=== PATIENT | male | born 1960 | race Caucasian/White ===

== ENCOUNTER 2019-05-30 09:17 | Emergency (ER) | payer BC, OTHER ==
[~2019-05-30] VITALS: Ht 160 cm; Wt 95.0 kg
[~2019-05-30 09:17] MED LIST: IBUPROFEN; TRAM50TA3 PO
[2019-05-30] MEDS ORDERED: KETOROLAC 60MG/2ML VIAL IM STA (09:53)
[2019-05-30 10:38] VITALS: BP 132/80
== END 2019-05-30 10:39 | disposition home or self-care (01) ==
LOC: ER 09:17
DX: M25.561 Pain in right knee (principal)
CPT/HCPCS: 96372; 99283; J1885

== ENCOUNTER 2020-04-28 10:48 | Emergency (ER) | payer BC ==
[~2020-04-28] VITALS: Ht 165.1 cm; Wt 98.0 kg
[2020-04-28 11:32] LABS: BASOPHILS % 0.8 % (0.0-2.0); EOSINOPHILS % 0.3 % (0.0-5.0); HEMATOCRIT. 47.3 % (42.0-52.0); MEAN CORPUSCULAR HEMOGLOBIN 29.9 pg (28.0-32.0); MEAN CORPUSCULAR VOLUME 88.2 fL (80.0-94.0); MONOCYTES % 8.3 % (2.0-8.0); NEUTROPHILS % 48.6 % (40.0-76.0); PLATELET 156 x1000/uL (130-400); RED BLOOD CELL COUNT 5.36 mill/uL (4.7-6.1); RED CELL DISTRIBUTION WIDTH 16.9 % (11.6-14.6)
[2020-04-28 11:34] LABS: CLARITY URINE CLEAR (CLEAR); COLOR URINE YELLOW (YELLOW); KETONES URINE NEGATIVE (NEGATIVE); LEUKOCYTE ESTERASE URINE NEGATIVE (NEGATIVE); NITRITE URINE NEGATIVE (NEGATIVE); OCCULT BLOOD URINE NEGATIVE (NEGATIVE); PH URINE 5.5 (4.5-8.0); PROTEIN URINE NEGATIVE (NEGATIVE); SPECIFIC GRAVITY URINE 1.021 (1.005-1.030); UROBILINOGEN URINE 0.2 E.U./dL (0.2-1.0)
[2020-04-28 11:40] LABS: CHLORIDE 106 mEq/L (98-107)
[2020-04-28 11:54] LABS: *AMPHETAMINES SCREEN URINE NEGATIVE (NEGATIVE); *BARBITURATES SCREEN URINE NEGATIVE (NEGATIVE); *BENZODIAZEPINES SCREEN URINE NEGATIVE (NEGATIVE); *COCAINE SCREEN URINE NEGATIVE (NEGATIVE); METHADONE URINE SCREEN NEGATIVE (NEGATIVE)
[2020-04-28 11:55] LABS: CANNABINOID URINE SCREEN NEGATIVE (NEGATIVE); OPIATES URINE SCREEN NEGATIVE (NEGATIVE); PHENCYCLIDINE URINE SCREEN NEGATIVE (NEGATIVE)
[2020-04-28 14:13] VITALS: BP 112/69
[2020-04-28] MEDS ORDERED: MORPHINE SULFATE 2 MG/ML CPJ (NOT FOR IM USE) IV ONE (14:15)
== END 2020-04-28 14:59 | disposition home or self-care (01) ==
LOC: ER 10:48
DX: K40.20 Bilateral inguinal hernia, without obstruction or gangrene, not specified as recurrent (principal); K44.9 Diaphragmatic hernia without obstruction or gangrene; J18.9 Pneumonia, unspecified organism; E86.0 Dehydration; R73.9 Hyperglycemia, unspecified
CPT/HCPCS: 36415; 71045; 74176; 80053; 80305; 81003; 83880; 84484; 85025; 93005; 96374; 99285; J2270

== ENCOUNTER 2020-05-05 14:28 | Inpatient (IN) | payer BC ==
[~2020-05-05] VITALS: Ht 165.1 cm; Wt 89.8 kg
[2020-05-05] MEDS ORDERED: ACETAMINOPHEN 325MG TABLET PO STA (14:42)
[2020-05-05] MEDS ORDERED: AZITHROMYCIN 500 MG in DEXT 5% WATER 250 ML IV STA (15:23)
[2020-05-05] MEDS ORDERED: CEFTRIAXONE 2 G PREMIX 50 ML IV ONE (15:30)
[2020-05-05 15:42] LABS: CHLORIDE 103 mEq/L (98-107)
[2020-05-05 15:43] LABS: CLARITY URINE CLEAR (CLEAR); COLOR URINE DARK YELLOW (YELLOW); KETONES URINE TRACE (NEGATIVE); LEUKOCYTE ESTERASE URINE NEGATIVE (NEGATIVE); NITRITE URINE NEGATIVE (NEGATIVE); OCCULT BLOOD URINE NEGATIVE (NEGATIVE); PROTEIN URINE 3+ (NEGATIVE); SPECIFIC GRAVITY URINE 1.025 (1.005-1.030)
[2020-05-05 15:44] LABS: HEMATOCRIT. 44.5 % (42.0-52.0); MEAN CORPUSCULAR HEMOGLOBIN 29.5 pg (28.0-32.0); MEAN CORPUSCULAR VOLUME 87.6 fL (80.0-94.0); MEAN PLATELET VOLUME 8.9 fl (7.4-10.4); PLATELET 295 x1000/uL (130-400); RED BLOOD CELL COUNT 5.08 mill/uL (4.7-6.1); RED CELL DISTRIBUTION WIDTH 16.6 % (11.6-14.6)
[2020-05-05 16:58] LABS: NUCLEATED RED BLOOD CELLS 1 /100 WBC
[2020-05-05 16:59] LABS: PLATELET ESTIMATE NORMAL
[2020-05-05] MEDS ORDERED: CEFTRIAXONE 1 G PREMIX 50 ML IV SCH (22:15)
[2020-05-05] MEDS ORDERED: ACETAMINOPHEN 650MG/20.3ML UDC GT PRN ×2 (22:15)
[2020-05-05] MEDS ORDERED: ACETAMINOPHEN 650MG SUPP PR PRN ×2 (22:15)
[2020-05-05] MEDS ORDERED: ACETAMINOPHEN 325MG TABLET PO PRN ×2 (22:15)
[2020-05-05] MEDS ORDERED: DOCUSATE SODIUM 100MG CAPSULE PO PRN (22:15)
[2020-05-05] MEDS ORDERED: AZITHROMYCIN 500 MG in DEXT 5% WATER 250 ML IV SCH (22:15)
[2020-05-05] MEDS ORDERED: DEXTROSE 50% WATER 50ML SYRINGE IV PRN (22:30)
[2020-05-05] MEDS ORDERED: ONDANSETRON HCL 4MG/2ML INJ IV PRN (22:30)
[2020-05-05] MEDS ORDERED: CLONIDINE 0.1MG TABLET PO PRN (22:30)
[2020-05-06 00:21] LABS: INR 1.1; PROTHROMBIN TIME 11.4 sec (9.6-11.0)
[2020-05-06 05:12] LABS: BASOPHILS % 0.2 % (0.0-2.0); HEMATOCRIT. 43.3 % (42.0-52.0); HEMOGLOBIN. 14.6 g/dL (14.0-18.0); LYMPHOCYTES % 7.7 % (20.0-50.0); MEAN CORPUSCULAR HEMOGLOBIN 29.6 pg (28.0-32.0); MEAN PLATELET VOLUME 8.5 fl (7.4-10.4); MONOCYTES % 2.4 % (2.0-8.0); NEUTROPHILS % 89.7 % (40.0-76.0); PLATELET 301 x1000/uL (130-400); RED BLOOD CELL COUNT 4.92 mill/uL (4.7-6.1); RED CELL DISTRIBUTION WIDTH 16.2 % (11.6-14.6)
[2020-05-06 05:20] LABS: CHLORIDE 102 mEq/L (98-107)
[2020-05-06 05:39] LABS: LDL CHOLESTEROL 77 mg/dL (5-100)
[2020-05-06 05:40] LABS: HDL CHOLESTEROL 24 mg/dL (40-59)
[2020-05-06 06:50] VITALS: BP 141/86
[2020-05-06] MEDS: BLOOD SUGAR DIAGNOSTIC STRIP TEST SCH ×4 (07:40→21:00)
[2020-05-06 08:00] VITALS: BP 141/86
[2020-05-06] MEDS: INSULIN LISPRO 100 UNITS/ML SUBCUT SCH ×4 (08:10→21:00)
[2020-05-06] MEDS: HYDROCODONE/ACETAMINOPHEN 5/325MG TABLET PO PRN (08:16)
[2020-05-06] MEDS ORDERED: ENOXAPARIN 40MG/0.4ML SYR SUBCUT SCH (09:00)
[2020-05-06 12:00] VITALS: BP 104/72
[2020-05-06] MEDS: GUAIFENESIN 200MG/10ML SUGAR FREE UDC PO PRN (16:31)
[2020-05-06] MEDS: CEFTRIAXONE 1 G PREMIX 50 ML IV SCH (18:01)
[2020-05-06] MEDS: AZITHROMYCIN 500 MG in DEXT 5% WATER 250 ML IV SCH (18:01)
[2020-05-06] MEDS: ALPRAZOLAM 0.5 MG TABLET PO PRN (18:21)
[2020-05-06 20:00] VITALS: BP 109/68
[2020-05-06] MEDS: ENOXAPARIN 30MG/0.3ML SYR SUBCUT SCH (21:01)
[2020-05-07 00:05] VITALS: BP 102/63
[2020-05-07] MEDS: GUAIFENESIN 200MG/10ML SUGAR FREE UDC PO PRN ×3 (00:32→17:55)
[2020-05-07] MEDS: HYDROCODONE/ACETAMINOPHEN 5/325MG TABLET PO PRN ×2 (00:32→17:55)
[2020-05-07] MEDS: ALPRAZOLAM 0.5 MG TABLET PO PRN (02:07)
[2020-05-07 04:00] VITALS: BP 110/54
[2020-05-07] MEDS: BLOOD SUGAR DIAGNOSTIC STRIP TEST SCH ×4 (05:41→20:22)
[2020-05-07 05:43] LABS: BASOPHILS % 0.1 % (0.0-2.0); HEMATOCRIT. 40.9 % (42.0-52.0); HEMOGLOBIN. 13.9 g/dL (14.0-18.0); LYMPHOCYTES % 14.6 % (20.0-50.0); MEAN CORPUSCULAR HEMOGLOBIN 29.7 pg (28.0-32.0); MEAN CORPUSCULAR VOLUME 87.4 fL (80.0-94.0); MEAN PLATELET VOLUME 8.8 fl (7.4-10.4); MONOCYTES % 3.3 % (2.0-8.0); PLATELET 335 x1000/uL (130-400); RED BLOOD CELL COUNT 4.68 mill/uL (4.7-6.1); RED CELL DISTRIBUTION WIDTH 16.1 % (11.6-14.6)
[2020-05-07 07:42] LABS: CHLORIDE 102 mEq/L (98-107)
[2020-05-07] MEDS: INSULIN LISPRO 100 UNITS/ML SUBCUT SCH ×4 (08:10→17:11)
[2020-05-07 08:56] VITALS: BP 104/63
[2020-05-07] MEDS: ENOXAPARIN 30MG/0.3ML SYR SUBCUT SCH ×2 (09:02→20:37)
[2020-05-07] MEDS: DEXAMETHASONE 4MG TABLET PO SCH (11:30)
[2020-05-07] MEDS: ALBUTEROL 6.7GM HFA INHALER ORI SCH ×2 (11:34→17:10)
[2020-05-07 12:00] VITALS: BP 114/75
[2020-05-07] MEDS: AZITHROMYCIN 500 MG in DEXT 5% WATER 250 ML IV SCH (15:26)
[2020-05-07 16:00] VITALS: BP 123/67
[2020-05-07] MEDS: CEFTRIAXONE 1 G PREMIX 50 ML IV SCH (17:10)
[2020-05-07 20:00] VITALS: BP 118/68
[2020-05-08] MEDS: ALBUTEROL 6.7GM HFA INHALER ORI SCH ×4 (00:38→18:26)
[2020-05-08 00:44] VITALS: BP 106/53
[2020-05-08 04:00] VITALS: BP 110/73
[2020-05-08] MEDS: BLOOD SUGAR DIAGNOSTIC STRIP TEST SCH ×4 (06:40→21:32)
[2020-05-08 08:00] VITALS: BP 110/75
[2020-05-08] MEDS: INSULIN LISPRO 100 UNITS/ML SUBCUT SCH ×4 (08:10→21:52)
[2020-05-08] MEDS: DEXAMETHASONE 4MG TABLET PO SCH ×2 (09:10→18:07)
[2020-05-08] MEDS: ENOXAPARIN 30MG/0.3ML SYR SUBCUT SCH (09:10)
[2020-05-08 12:00] VITALS: BP 115/74
[2020-05-08 12:45] LABS: BG BASE EXCESS 1.9 mmol/L (-2.0-2.0); BG CARBOXYHEMOGLOBIN 0.9 % (0.5-1.5); BG DEOXYHEMOGLOBIN 5.5 % (0.0-5.0); BG HCO3 ACT 26.2 mmol/L (22.0-26.0); BG METHEMOGLOBIN 0.1 % (0.0-1.5); BG OXYGEN SATURATION 94.4 % (92.0-98.5); BG OXYHEMOGLOBIN 93.5 % (94.0-97.0); BG PCO2 40.1 mmHg (35.0-45.0); BG PH 7.433 (7.350-7.450); BG SAMPLE SITE RIGHT RADIAL; BG TOTAL HEMOGLOBIN 14.7 g/dL (12.0-18.0); BG VENT MODE MASK - SIMPLE
[2020-05-08 16:00] VITALS: BP 111/81
[2020-05-08 16:09] LABS: HEMATOCRIT 43.1 % (42.0-52.0); HEMOGLOBIN 14.6 g/dL (14.0-18.0); MEAN CORPUSCULAR HEMOGLOBIN 29.6 pg (28.0-32.0); MEAN CORPUSCULAR VOLUME 87.5 fL (80.0-94.0); PLATELET 370 x1000/uL (130-400); RED BLOOD CELL COUNT 4.93 mill/uL (4.7-6.1); RED CELL DISTRIBUTION WIDTH 15.7 % (11.6-14.6)
[2020-05-08 16:11] LABS: CHLORIDE 102 mEq/L (98-107)
[2020-05-08] MEDS ORDERED: ASCORBIC ACID 500 MG TABLET PO SCH (16:15)
[2020-05-08] MEDS ORDERED: ENOXAPARIN 60MG/0.6ML SYR SUBCUT NR (17:00)
[2020-05-08] MEDS: AZITHROMYCIN 500 MG in DEXT 5% WATER 250 ML IV SCH (18:03)
[2020-05-08] MEDS: ZINC SULFATE 220 MG ( 50 ) CAPSULE PO SCH (18:03)
[2020-05-08] MEDS: CEFTRIAXONE 1 G PREMIX 50 ML IV SCH (18:49)
[2020-05-08 20:00] VITALS: BP 117/75
[2020-05-08] MEDS: FAMOTIDINE 20MG/2ML VIAL IV SCH (21:31)
[2020-05-08] MEDS: ASCORBIC ACID 500 MG TABLET PO SCH (21:32)
[2020-05-09] VITALS: BP 100/70
[2020-05-09 04:00] VITALS: BP 104/70
[2020-05-09] MEDS: ENOXAPARIN 100MG/ML SYR SUBCUT SCH ×2 (05:55→18:48)
[2020-05-09 06:53] LABS: HEMATOCRIT 42.7 % (42.0-52.0); HEMOGLOBIN 14.6 g/dL (14.0-18.0); MEAN CORPUSCULAR HEMOGLOBIN 29.6 pg (28.0-32.0); MEAN CORPUSCULAR VOLUME 86.8 fL (80.0-94.0); PLATELET 412 x1000/uL (130-400); RED BLOOD CELL COUNT 4.92 mill/uL (4.7-6.1)
[2020-05-09] MEDS: ALBUTEROL 6.7GM HFA INHALER ORI SCH ×4 (06:55→18:00)
[2020-05-09 07:29] LABS: CHLORIDE 103 mEq/L (98-107)
[2020-05-09] MEDS: BLOOD SUGAR DIAGNOSTIC STRIP TEST SCH ×4 (07:48→21:32)
[2020-05-09 08:00] VITALS: BP 106/72
[2020-05-09] MEDS: INSULIN LISPRO 100 UNITS/ML SUBCUT SCH ×5 (08:38→21:35)
[2020-05-09] MEDS: ZINC SULFATE 220 MG ( 50 ) CAPSULE PO SCH (08:41)
[2020-05-09] MEDS: DEXAMETHASONE 4MG TABLET PO SCH (08:41)
[2020-05-09] MEDS: ASCORBIC ACID 500 MG TABLET PO SCH ×2 (08:41→21:07)
[2020-05-09] MEDS: FAMOTIDINE 20MG/2ML VIAL IV SCH ×2 (08:41→21:07)
[2020-05-09 12:00] VITALS: BP 105/70
[2020-05-09 12:32] LABS: BG BASE EXCESS -1.3 mmol/L (-2.0-2.0); BG CARBOXYHEMOGLOBIN 0.4 % (0.5-1.5); BG DEOXYHEMOGLOBIN 17.2 % (0.0-5.0); BG FRACTION INSPIRED OXYGEN 21; BG HCO3 ACT 21.4 mmol/L (22.0-26.0); BG METHEMOGLOBIN 0.3 % (0.0-1.5); BG OXYGEN SATURATION 82.7 % (92.0-98.5); BG OXYHEMOGLOBIN 82.1 % (94.0-97.0); BG PCO2 30.6 mmHg (35.0-45.0); BG PH 7.462 (7.350-7.450); BG PO2 43.4 mmHg (75.0-100.0); BG SAMPLE SITE LEFT RADIAL; BG VENT MODE ROOM AIR
[2020-05-09] MEDS ORDERED: REMDESIVIR 200 MG in SODIUM CHLORIDE 0.9% 250 ML IV NR (15:00)
[2020-05-09 16:00] VITALS: BP 105/67
[2020-05-09] MEDS ORDERED: AZITHROMYCIN 500 MG TABLET PO SCH (17:00)
[2020-05-09] MEDS: CEFTRIAXONE 1 G PREMIX 50 ML IV SCH (18:47)
[2020-05-09 20:00] VITALS: BP 111/75
[2020-05-10] VITALS: BP 93/56
[2020-05-10] MEDS: ALBUTEROL 6.7GM HFA INHALER ORI SCH ×4 (00:33→17:33)
[2020-05-10 04:00] VITALS: BP 108/80
[2020-05-10] MEDS: ENOXAPARIN 100MG/ML SYR SUBCUT SCH ×2 (05:48→17:26)
[2020-05-10] MEDS: BLOOD SUGAR DIAGNOSTIC STRIP TEST SCH ×4 (05:54→21:56)
[2020-05-10 08:00] VITALS: BP 99/57
[2020-05-10] MEDS: FAMOTIDINE 20MG/2ML VIAL IV SCH ×2 (10:06→21:55)
[2020-05-10] MEDS: ZINC SULFATE 220 MG ( 50 ) CAPSULE PO SCH (10:07)
[2020-05-10] MEDS: ASCORBIC ACID 500 MG TABLET PO SCH ×2 (10:07→21:56)
[2020-05-10] MEDS: DEXAMETHASONE 4MG TABLET PO SCH (10:07)
[2020-05-10] MEDS: INSULIN LISPRO 100 UNITS/ML SUBCUT SCH ×4 (10:09→21:58)
[2020-05-10 12:00] VITALS: BP 99/70
[2020-05-10] MEDS: REMDESIVIR 100 MG in SODIUM CHLORIDE 0.9% 250 ML IV SCH (13:31)
[2020-05-10 16:00] VITALS: BP 97/60
[2020-05-10] MEDS: ALPRAZOLAM 0.5 MG TABLET PO PRN (18:58)
[2020-05-10 20:00] VITALS: BP 112/68
[2020-05-11] VITALS: BP 100/62
[2020-05-11 04:00] VITALS: BP 97/57
[2020-05-11 05:10] LABS: HEMATOCRIT 40.7 % (42.0-52.0); HEMOGLOBIN 13.3 g/dL (14.0-18.0); MEAN CORPUSCULAR HEMOGLOBIN 28.7 pg (28.0-32.0); MEAN CORPUSCULAR VOLUME 87.7 fL (80.0-94.0); PLATELET 442 x1000/uL (130-400); RED BLOOD CELL COUNT 4.64 mill/uL (4.7-6.1); RED CELL DISTRIBUTION WIDTH 16.1 % (11.6-14.6)
[2020-05-11 05:17] LABS: CHLORIDE 109 mEq/L (98-107)
[2020-05-11] MEDS: ALBUTEROL 6.7GM HFA INHALER ORI SCH ×5 (05:56→23:47)
[2020-05-11] MEDS: ENOXAPARIN 100MG/ML SYR SUBCUT SCH ×2 (05:59→17:48)
[2020-05-11] MEDS: BLOOD SUGAR DIAGNOSTIC STRIP TEST SCH ×4 (07:00→21:00)
[2020-05-11 08:00] VITALS: BP 95/58
[2020-05-11] MEDS: INSULIN LISPRO 100 UNITS/ML SUBCUT SCH ×4 (08:10→22:09)
[2020-05-11] MEDS: ALPRAZOLAM 0.5 MG TABLET PO PRN (08:48)
[2020-05-11] MEDS: ASCORBIC ACID 500 MG TABLET PO SCH ×2 (08:48→21:54)
[2020-05-11] MEDS: FAMOTIDINE 20MG/2ML VIAL IV SCH ×2 (08:48→21:54)
[2020-05-11] MEDS: ZINC SULFATE 220 MG ( 50 ) CAPSULE PO SCH (08:49)
[2020-05-11] MEDS: DEXAMETHASONE 4MG TABLET PO SCH (08:49)
[2020-05-11 08:57] LABS: BG BASE EXCESS -0.5 mmol/L (-2.0-2.0); BG CARBOXYHEMOGLOBIN 0.8 % (0.5-1.5); BG DEOXYHEMOGLOBIN 10.2 % (0.0-5.0); BG FRACTION INSPIRED OXYGEN 21; BG HCO3 ACT 21.6 mmol/L (22.0-26.0); BG METHEMOGLOBIN 0.3 % (0.0-1.5); BG OXYGEN SATURATION 89.7 % (92.0-98.5); BG OXYHEMOGLOBIN 88.7 % (94.0-97.0); BG PCO2 28.9 mmHg (35.0-45.0); BG PH 7.491 (7.350-7.450); BG PO2 51.9 mmHg (75.0-100.0); BG SAMPLE SITE RIGHT RADIAL; BG TOTAL HEMOGLOBIN 14.8 g/dL (12.0-18.0); BG VENT MODE ROOM AIR
[2020-05-11] MEDS ORDERED: POTASSIUM CHLORIDE 20MEQ TABLET SR PO NR (11:00)
[2020-05-11 12:00] VITALS: BP 109/74
[2020-05-11] MEDS: REMDESIVIR 100 MG in SODIUM CHLORIDE 0.9% 250 ML IV SCH (13:28)
[2020-05-11 16:00] VITALS: BP 122/68
[2020-05-11 20:00] VITALS: BP 134/72
[2020-05-12] VITALS: BP 98/61
[2020-05-12 04:00] VITALS: BP 130/82
[2020-05-12] MEDS: BLOOD SUGAR DIAGNOSTIC STRIP TEST SCH (05:50)
[2020-05-12] MEDS: ALBUTEROL 6.7GM HFA INHALER ORI SCH (05:50)
[2020-05-12] MEDS: ENOXAPARIN 100MG/ML SYR SUBCUT SCH (06:28)
[2020-05-12 08:00] VITALS: BP 129/91
[2020-05-12] MEDS: INSULIN LISPRO 100 UNITS/ML SUBCUT SCH (08:10)
[2020-05-12] MEDS: ZINC SULFATE 220 MG ( 50 ) CAPSULE PO SCH (08:24)
[2020-05-12] MEDS: FAMOTIDINE 20MG/2ML VIAL IV SCH (08:24)
[2020-05-12] MEDS: ASCORBIC ACID 500 MG TABLET PO SCH (08:25)
[2020-05-12] MEDS ORDERED: DEXAMETHASONE 4MG TABLET PO SCH (09:00)
== END 2020-05-12 09:01 | disposition left against medical advice (07) | DRG 871 ==
LOC: ER 14:28 → MICUSO 17:39 → 7WST 05-06 06:26
PROVIDERS: ADMIT Internal Medicine; ATTEND Internal Medicine
DX: A41.89 Other specified sepsis (principal); U07.1 COVID-19; J12.89 Other viral pneumonia; J96.01 Acute respiratory failure with hypoxia; E87.1 Hypo-osmolality and hyponatremia; D68.69 Other thrombophilia; E86.0 Dehydration; E78.5 Hyperlipidemia, unspecified; E11.9 Type 2 diabetes mellitus without complications; E66.9 Obesity, unspecified; K40.90 Unilateral inguinal hernia, without obstruction or gangrene, not specified as recurrent; R74.0 Nonspecific elevation of levels of transaminase and lactic acid dehydrogenase [LDH]; D64.9 Anemia, unspecified; Z68.32 Body mass index [BMI] 32.0-32.9, adult; Z79.899 Other long term (current) drug therapy; Z82.49 Family history of ischemic heart disease and other diseases of the circulatory system
CPT/HCPCS: 36415; 36600; 71045; 80048; 80053; 80061; 80076; 81003; 82375; 82805; 82962; 83036; 83605; 83880; 84484; 85025; 85027; 85651; 86140; 86850; 86900; 87635; 87804; 93005; 96365; 99285; J0456; J0696; J1650; J1815; J3490; J7050; J7060; J8540; Q9957

== ENCOUNTER 2021-07-25 16:28 | Emergency (ER) | payer BC, OTHER ==
[~2021-07-25] VITALS: Ht 157.5 cm; Wt 80.0 kg
[2021-07-25 16:53] VITALS: BP 161/95
== END 2021-07-25 17:30 | disposition left against medical advice (07) ==
LOC: ER 16:28
DX: Z53.21 Procedure and treatment not carried out due to patient leaving prior to being seen by health care provider (principal)